=== PATIENT | female | born 1955 | race Caucasian/White ===

== ENCOUNTER → 2017-02-04 | Outpatient (CLI) | payer OTHER ==
[~2017-02-04] MED LIST: AMOXICILLIN 25250 M2 PO; ASPIRIN 81MG TA81 MG PO; B12 INJ.,1000 MCG/M OR; C-500500 MG PO; CRESTOR10 MG PO; D-31000 IU PO; DIPHENHYDRAMINE25 M1 PO; FISH OIL CONC1000 MG PO; FLU MED OR; IBU-200200 MG PO; [UNRECOGNIZED DRUG - OTHER] PO
--- NOTE | 2017-02-04 13:46 | RADIOLOGY REPORT PS360 ---
US RUQ-(ABD LTD)1ORGAN/QUAD/FU HISTORY: Nausea and right upper quadrant pain ABDOMINAL PAIN ORDERING PHYSICIAN: Mena Allen MD PATIENT AGE: 61 years COMPARISON: None FINDINGS: PANCREAS:Unremarkable. No obvious mass or abnormal fluid collection. No ductal dilatation LIVER:No focal liver lesions demonstrated. Increased echogenicity of the liver consistent with hepatic steatosis. No intrahepatic biliary ductal dilatation evident RIGHT KIDNEY:Unremarkable. Normal size and echogenicity. No hydronephrosis GALLBLADDER:No gallstones, gallbladder wall thickening, pericholecystic fluid, or biliary dilatation. IMPRESSION: 1. Fatty liver. 2. Otherwise negative right upper quadrant ultrasound
== END ==
LOC: RAD 08:49
DX: R10.11 Right upper quadrant pain (principal)